=== PATIENT | male | born 1935 | race Caucasian/White ===

== ENCOUNTER 2016-10-16 20:50 | Emergency (ER) | payer MEDICARE, BC ==
[2016-10-16] MEDS ORDERED: ASPIRIN 81 MG CHEWABLE CTB ONE (21:15)
[2016-10-16] MEDS ORDERED: ASPIRIN 81 MG CHEWABLE CTB PO ONE (21:15)
[2016-10-16 21:30] VITALS: TEMP 97.9
[2016-10-16 21:46] LABS: BASOPHILS % (AUTO) 1 % (0-3); EOSINOPHILS % (AUTO) 4 % (0-9); HEMATOCRIT 44 % (39-53); MEAN CORPUSCULAR HGB CONC 32.5 gm/dl (32.0-36.0); MEAN CORPUSCULAR VOLUME 85 fL (80-100); MONOCYTES % (AUTO) 12.3 % (0-12); NEUTROPHILS % (AUTO) 67.3 % (37-80)
[2016-10-16 21:58] LABS: CALCIUM 9.1 mg/dl (8.5-10.1); GLOM FILT RATE 32 mL/min (>60); POTASSIUM 3.8 mMol/L (3.5-5.1); SODIUM 138 mMol/L (136-145)
[2016-10-16 22:51] VITALS: BP 133/68; PULSE 69; RESP 19; O2SAT 94
== END 2016-10-16 22:41 | disposition home or self-care (01) | DRG 313 ==
LOC: ED 20:50
DX: R07.9 Chest pain, unspecified (principal); I25.2 Old myocardial infarction; K59.00 Constipation, unspecified
CPT/HCPCS: 36415; 71010; 80048; 84484; 85025; 93005; 99284

== ENCOUNTER 2017-08-27 23:14 | Emergency (ER) | payer MEDICARE, BC ==
[2017-08-27] MEDS ORDERED: NITROGLYCERIN 0.4 MG TAB SL ONE (23:25)
[2017-08-27] MEDS ORDERED: ASPIRIN 81 MG CHEWABLE CTB ONE (23:25)
[2017-08-27] MEDS ORDERED: NITROGLYCERIN 0.4 MG TAB SL PRN (23:26)
[2017-08-27] MEDS ORDERED: ASPIRIN 81 MG CHEWABLE CTB PO ONE (23:26)
[2017-08-27 23:52] LABS: BLOOD UREA NITROGEN 45 mg/dl (7-18); CALCIUM 8.7 mg/dl (8.5-10.1); CARBON DIOXIDE 27.9 mEq/L (21-32); CHLORIDE 104 mMol/L (98-107); CREATININE 2.21 mg/dl (0.80-1.30); GLOM FILT RATE 29 mL/min (>60); GLUCOSE 125 mg/dl (74-106); POTASSIUM 4.2 mMol/L (3.5-5.1); SODIUM 141 mMol/L (136-145)
[2017-08-27 23:53] LABS: HEMOGLOBIN 13.6 gm/dl (13.5-17.7); MEAN CORPUSCULAR HEMOGLOBIN 28.8 pg (27.0-32.0); MEAN CORPUSCULAR HGB CONC 32.6 gm/dl (32.0-36.0)
[2017-08-27 23:54] LABS: TROP I < 0.017 ng/ml (0.000-0.056)
[2017-08-28 00:01] VITALS: TEMP 98.1
[2017-08-28 00:51] VITALS: BP 116/61; PULSE 59; RESP 20; O2SAT 95
== END 2017-08-28 00:28 | disposition home or self-care (01) | DRG 311 ==
LOC: ED 23:14
DX: I20.8 Other forms of angina pectoris (principal); R06.00 Dyspnea, unspecified
CPT/HCPCS: 71045; 80048; 83880; 84484; 85027; 93005; 99283; 99284; A9270-GY

== ENCOUNTER 2017-11-25 11:08 | Emergency (ER) | payer MEDICARE, BC ==
[2017-11-25 11:29] VITALS: TEMP 96.3
[2017-11-25 12:48] LABS: BASOPHILS % (AUTO) 1 % (0-3); EOSINOPHILS % (AUTO) 3 % (0-9); HEMATOCRIT 40 % (39-53); HEMOGLOBIN 12.9 gm/dl (13.5-17.7); LYMPHOCYTES % (AUTO) 8.5 % (10-50); MEAN CORPUSCULAR HEMOGLOBIN 28.5 pg (27.0-32.0); MEAN CORPUSCULAR HGB CONC 32.4 gm/dl (32.0-36.0); MEAN CORPUSCULAR VOLUME 88 fL (80-100); MONOCYTES % (AUTO) 10.3 % (0-12); NEUTROPHILS % (AUTO) 77.3 % (37-80)
[2017-11-25 13:03] LABS: ALBUMIN 3.1 gm/dl (3.4-5.0); BILIRUBIN,TOTAL 2.8 mg/dl (0.2-1.0); CALCIUM 8.5 mg/dl (8.5-10.1); CARBON DIOXIDE 28.3 mEq/L (21-32); CREATININE 2.34 mg/dl (0.80-1.30); POTASSIUM 3.8 mMol/L (3.5-5.1); TOTAL PROTEIN 6.6 gm/dl (6.4-8.2)
[2017-11-25 15:00] VITALS: O2SAT 94
[2017-11-25 15:02] VITALS: RESP 18
[2017-11-25 15:03] VITALS: BP 108/53; PULSE 50
== END 2017-11-25 14:10 | disposition home or self-care (01) | DRG 310 ==
LOC: ED 11:08
DX: R00.1 Bradycardia, unspecified (principal); T42.8X5A Adverse effect of antiparkinsonism drugs and other central muscle-tone depressants, initial encounter; I50.9 Heart failure, unspecified
CPT/HCPCS: 36415; 80053; 83880; 85025; 99283

== ENCOUNTER 2018-03-02 12:05 | Emergency (ER) | payer MEDICARE, BC ==
[2018-03-02] MEDS ORDERED: ASPIRIN 81 MG CHEWABLE CTB ONE (12:08)
[2018-03-02] MEDS ORDERED: ASPIRIN 81 MG CHEWABLE CTB PO STA (12:26)
[2018-03-02] MEDS ORDERED: NITROGLYCERIN 0.4 MG TAB SL PRN (12:26)
[2018-03-02] MEDS ORDERED: SODIUM CHLORIDE 0.9% FLUSH 10 ML SOL IV PRN (12:26)
[2018-03-02 12:34] LABS: BASOPHILS % (AUTO) 1 % (0-3); EOSINOPHILS % (AUTO) 4 % (0-9); HEMATOCRIT 48 % (39-53); HEMOGLOBIN 14.3 gm/dl (13.5-17.7); LYMPHOCYTES % (AUTO) 17.6 % (10-50); MEAN CORPUSCULAR HEMOGLOBIN 26.1 pg (27.0-32.0); MEAN CORPUSCULAR HGB CONC 30.1 gm/dl (32.0-36.0); MEAN CORPUSCULAR VOLUME 86 fL (80-100); MONOCYTES % (AUTO) 9.1 % (0-12); NEUTROPHILS % (AUTO) 68.1 % (37-80)
[2018-03-02 12:46] LABS: BLOOD UREA NITROGEN 38 mg/dl (7-18); CALCIUM 9.1 mg/dl (8.5-10.1); CHLORIDE 102 mMol/L (98-107); CREATINE KINASE 115 U/L (39-308); CREATININE 1.77 mg/dl (0.80-1.30); GLUCOSE 125 mg/dl (74-106); SODIUM 140 mMol/L (136-145); TROP I < 0.017 ng/ml (0.000-0.056)
[2018-03-02 12:48] LABS: INR 1.96 (0.86-1.12)
[2018-03-02 17:30] VITALS: BP 126/63; PULSE 83; RESP 14; TEMP 97.8; O2SAT 99
== END 2018-03-02 17:25 | disposition home or self-care (01) | DRG 313 ==
LOC: ED 12:05
DX: R07.89 Other chest pain (principal); I48.91 Unspecified atrial fibrillation; E11.9 Type 2 diabetes mellitus without complications; I50.9 Heart failure, unspecified
CPT/HCPCS: 36415; 71045; 80048; 82550; 83880; 84484; 85025; 85610; 85730; 93005; 99284; 99285

== ENCOUNTER 2018-09-12 07:24 | Day surgery (SDC) | payer MEDICARE, BC ==
[~2018-09-12 07:24] MED LIST: LIDOCAINE HCL 1% MPF 30 SOL ONE; PROPOFOL 500 MG/50 ML EMU IV ONE
[2018-09-12 09:13] VITALS: TEMP 97.4
[2018-09-12 09:42] VITALS: BP 111/60; PULSE 70; RESP 18; O2SAT 99
== END 2018-09-12 10:19 | disposition home or self-care (01) | DRG 812 ==
LOC: SURG 07:24
PROVIDERS: ATTEND Surgery
DX: D50.9 Iron deficiency anemia, unspecified (principal); K57.32 Diverticulitis of large intestine without perforation or abscess without bleeding; L53.8 Other specified erythematous conditions; D12.0 Benign neoplasm of cecum; D12.4 Benign neoplasm of descending colon; D37.4 Neoplasm of uncertain behavior of colon
CPT/HCPCS: J2001; J2704